=== PATIENT | female | born 1950 | race Caucasian/White ===

== ENCOUNTER 2017-09-26 05:33 | Inpatient (IN) | payer MEDICARE, OTHER ==
[2017-09-26] MEDS ORDERED: Nitroglycerin 0.4 MG TAB (25 Tab Bottle) ONE (05:53)
[2017-09-26 06:01] LABS: Hemoglobin 15.2 g/dL (12.0-16.0); Mean Corpuscular HGB CONC 31.7 g/dL (32.0-36.0); Mean Corpuscular Hemoglobin 30.9 pg (27.0-31.0); Mean Corpuscular Volume 97.6 fl (81.0-99.0); Mean Platelet Volume 5.8 fL (7.4-10.4); Platelet Count 253 thou/uL (130-400); RBC Distribution Width 11.8 % (11.5-14.5); Red Blood Cell (RBC) Count 4.93 mill/uL (4.20-5.40); White Blood Cell (WBC) Count 6.2 thou/uL (4.8-10.8)
[2017-09-26 06:04] LABS: INR-International Normal Ratio 0.9; PTT 26.3 SEC (22.9-36.1); Prothrombin Time 12.2 SEC (12.0-14.7)
[2017-09-26 06:10] LABS: Eosinophils 2 % (0-10); Lymphocytes 64 % (21-51); MDiff Complete? YES; Monocytes 9 % (0-10); Neutrophil 25 % (42-75)
[2017-09-26 06:14] LABS: ALT (SGPT) 27 U/L (8-55); AST (SGOT) 33 U/L (5-34); Albumin 4.3 g/dL (3.4-4.8); Alkaline Phosphatase 73 U/L (40-150); Anion Gap 17 mmol/L (10-20); BUN (Urea Nitrogen) 17 mg/dL (9.8-20.1); Bilirubin, Total 0.3 mg/dL (0.2-1.2); CK (CPK) 490 U/L (29-168); Calc. Creatinine Clearance 0 mL/min (70-130); Calcium 9.8 mg/dL (7.8-10.44); Carbon Dioxide 23 mmol/L (23-31); Chloride 99 mmol/L (98-107); Estimated GFR-MDRD 60; Globulin 3.6 g/dL (2.4-3.5); Glucose 147 mg/dL (80-115); Protein, Total 7.9 g/dL (6.0-8.3); Sodium 135 mmol/L (136-145)
[2017-09-26 06:16] LABS: CKMB 4.6 ng/mL (0-6.6)
[2017-09-26] MEDS ORDERED: Nitroglycerin 50 MG/250 ML BOT 250 ML ONE (06:17)
[2017-09-26 06:20] LABS: Troponin I 0.303 ng/mL (< 0.028)
[2017-09-26] MEDS ORDERED: Heparin 5,000 UNITS/ML VIAL ONE (06:37)
[2017-09-26] MEDS ORDERED: Heparin 10,000 UNITS/1 ML VIAL ONE (07:32)
[2017-09-26] MEDS ORDERED: Nitroglycerin 100MG/250ML BOT 250 ML ONE (07:33)
[2017-09-26] MEDS ORDERED: Atropine Sulfate 1 mg/10 ml Syringe ONE (08:11)
--- NOTE | 2017-09-26 09:13 | RAD ---
UPRIGHT PORTABLE CHEST ONE VIEW: HISTORY: A 67-year-old female with chest pain and diaphoresis. FINDINGS: Atherosclerosis of the aorta with ectasia. Heart size is normal. No confluent pneumonia, overt ciarra a, or pleural effusion. There is a soft tissue nodular density overlying the left costophrenic angle . The etiology of this is uncertain. Conceivably, it could represent a nipple shadow. Consider fol low-up PA and lateral chest for further assessment in this regard. IMPRESSION: 1. No active intrathoracic disease. 2. Atherosclerosis of the aorta with ectasia. 3. Soft tissue, 1.2 nodular density overlying the left costophrenic angle, which may well just repre sent a nipple shadow, but follow-up PA and lateral chest is suggested, to include nipple markers for further assessment. POS: [facility]
[2017-09-26] MEDS ORDERED: traMADol HCl 50 MG TAB PO PRN (10:55)
[2017-09-26] MEDS ORDERED: Acetaminophen/Codeine 30-300mg Tablet PO PRN (10:55)
[2017-09-26] MEDS ORDERED: Milk Of Magnesia 30 ML UDCUP PO PRN (10:55)
[2017-09-26] MEDS ORDERED: cloNIDine 0.1 MG TAB PO PRN (10:55)
[2017-09-26] MEDS ORDERED: Sodium Chloride 0.9% 1,000 ML IV SCH (11:00)
[2017-09-26] MEDS ORDERED: TICAGRELOR 90 MG TABLET PO SCH (11:00)
[2017-09-26 11:18] VITALS: BMI 19.5
[2017-09-26] MEDS ORDERED: Iopamidol 370 76% 50 ML VIAL FS ONE (11:30)
[2017-09-26] MEDS ORDERED: Iopamidol 370 76% 100 ML VIAL ONE (11:30)
[2017-09-26] MEDS ORDERED: TICAGRELOR 90 MG TABLET ONE (11:46)
[2017-09-26 12:10] LABS: Troponin I 35.171 ng/mL (< 0.028)
[2017-09-26] MEDS ORDERED: Fentanyl 100 MCG/2 ML VIAL ONE (12:37)
[2017-09-26] MEDS ORDERED: Carvedilol 3.125 MG TAB PO SCH ×2 (13:45→21:00)
[2017-09-26] MEDS ORDERED: Lisinopril 2.5 MG TAB PO SCH (13:45)
[2017-09-26] MEDS ORDERED: Fentanyl 100 MCG/2 ML VIAL SLOW IVP SCH (13:45)
--- NOTE | 2017-09-26 15:47 | HP ---
REASON FOR ADMISSION: Acute myocardial infarction. HISTORY OF PRESENT ILLNESS: Ms. Karena Penny is a 67-year-old woman. She said she was in her usua state of good health until last evening she started having discomfort in her chest and she thought it was indigestion. This morning, she woke up with severe arm pain bilaterally and also chest discom fort which worsened. She felt nauseated and diaphoretic. She went to the emergency room. Initial E KG was not conclusive for KS. There was no definite KS, but her repeat EKG showed severe ST elevatio n in lead II, III, AVF and V6 and severe ST depression in V2 and V3. The patient was transferred her e for emergency treatment. PAST MEDICAL HISTORY: 1. She has history of hypertension on no medicines. 2. She said she was recently diagnosed with high cholesterol, but the initial plan was to treat her with diet alone. 3. Osteoarthritis, medication once takes anti-inflammatory. 4. Takes blood pressure medicine, but she does not know which one. 5. No history of diabetes. 6. History of smoking, stopped 2 years ago. SOCIAL HISTORY: Stopped smoking 2 years ago, she has a very supportive who is at the bedside now. REVIEW OF SYSTEMS: Constitutional: No significant weight gain or loss. She is quite thin. Vision: No changes. Hearing: No changes. Pulmonary: No cough or wheezing. Gastrointestinal: No nausea, vomiting, diarrhea. Skin: No rashes. Neurologic: No unilateral weakness or numbness. Ps ychiatric: No unusual depression or anxiety. Hematologic: No unusual bruising. Genitourinary: No burning with urination. Musculoskeletal: She has aches and pains and nothing unusual in various dolly ints for which she takes anti-inflammatory. PHYSICAL EXAMINATION: GENERAL: Initially she is a critically ill appearing patient, now she is feeling much better. VITAL SIGNS: Initial blood pressure was 140 systolic. Pulse was in the 70 range. The patient was c old and pale. HEENT: Eyes: Sclerae nonicteric. Mouth mucous membranes moist. NECK: Supple, no lymphadenopathy. LUNGS: Currently clear anterolaterally. CARDIAC: Normal S1, normal S2. There is no murmur, rub or gallop. ABDOMEN: Soft, nontender. EXTREMITIES: No clubbing or cyanosis. There is no edema. SKIN: Skin was cool, but not cold. Her temperature by report was 93 degrees. She is on a warming blanket now. IMAGING: EKG showed severe ST elevations outlined above. Troponin level was relatively low at 0.3. PLAN: 1. The patient was given Heparin. 2. Aspirin. 3. She was taken directly to the cardiac catheterization lab. She was found to have approximately 7 0% calcified LAD lesion and 90% ostial diagonal lesion, 90%-95% obtuse marginal lesion with a small d istribution circumflex and a completely occluded right coronary, two stents were placed, 2.75 x 20 mm stent distal and then a 3.0 x 24 proximal slightly overlapping stents. Most of the vessels postdila maty with a 3-0 balloon over the last few millimeters. The patient is feeling better now. ASSESSMENT: 1. ST elevation infarction status post emergency percutaneous therapy. 2. Three-vessel disease. PLAN: 1. Aspirin. 2. Brilinta. 3. Statins. 4. MICHAELLE inhibitors and beta blockers, although ejection fraction is normal. 5. We will discuss the options with the patient, the option would be to proceed to bypass surgery at a later time versus stenting the obtuse marginal and treating medically, I think that was probably marguerite kohli to be the treatment we will pursue for now. We will be treating her medically at this time.
--- NOTE | 2017-09-26 17:04 | EKG ---
Test Reason : POST STENTS X2-RCA Blood Pressure : / mmHG Vent. Rate : 078 BPM Atrial Rate : 078 BPM P-R Int : 126 ms QRS Dur : 072 ms QT Int : 412 ms P-R-T Axes : 074 049 070 degrees QTc Int : 469 ms Normal sinus rhythm Nonspecific ST abnormality slight inferior st elevation of questionable significance No previous ECGs available Confirmed by DR. Laron MCELROY ([id number]) on 09/26/2017 5:04:46 PM Referred By: HONEY Confirmed By:DR. Laron MCELROY
[2017-09-26 18:27] LABS: Troponin I 51.751 ng/mL (< 0.028)
[2017-09-26] MEDS ORDERED: Lisinopril 5 MG TAB PO SCH (20:00)
[2017-09-26] MEDS ORDERED: diphenhydrAMINE 50 MG/ML VIAL IVP SCH (20:00)
[2017-09-26] MEDS ORDERED: Furosemide 20 MG/2 ML VIAL SLOW IVP SCH (20:15)
[2017-09-26] MEDS: Atorvastatin Calcium 40 MG TAB PO SCH (20:36)
[2017-09-26] MEDS: TICAGRELOR 90 MG TABLET PO SCH (20:37)
[2017-09-27 04:19] LABS: #Lymphocytes 1.6 thou/uL (1.20-3.40); #Monocytes 0.6 thou/uL (0.11-0.59); #Neutrophils 3.4 thou/uL (1.40-6.50); %Basophils 0.8 % (0.0-1.0); %Eosinophils 0.6 % (0.0-10.0); %Lymphocytes 28.1 % (21.0-51.0); %Monocytes 10.3 % (0.0-10.0); %Neutrophils 60.2 % (42.0-75.0); Hemoglobin 12.9 g/dL (12.0-16.0); Mean Corpuscular HGB CONC 33.8 g/dL (32.0-36.0); Mean Corpuscular Hemoglobin 33.7 pg (27.0-31.0); Mean Corpuscular Volume 99.8 fl (81.0-99.0); Mean Platelet Volume 6.7 fL (7.4-10.4); Platelet Count 200 thou/uL (130-400); RBC Distribution Width 12.2 % (11.5-14.5); Red Blood Cell (RBC) Count 3.82 mill/uL (4.20-5.40); White Blood Cell (WBC) Count 5.6 thou/uL (4.8-10.8)
[2017-09-27 04:32] LABS: ALT (SGPT) 32 U/L (8-55); AST (SGOT) 109 U/L (5-34); Albumin 3.4 g/dL (3.4-4.8); Alkaline Phosphatase 48 U/L (40-150); Anion Gap 16 mmol/L (10-20); BUN (Urea Nitrogen) 9 mg/dL (9.8-20.1); Bilirubin, Total 0.5 mg/dL (0.2-1.2); Calc. Creatinine Clearance 66 mL/min (70-130); Calcium 8.8 mg/dL (7.8-10.44); Carbon Dioxide 20 mmol/L (23-31); Chloride 101 mmol/L (98-107); Estimated GFR-MDRD 87; Globulin 2.9 g/dL (2.4-3.5); Glucose 95 mg/dL (80-115); Protein, Total 6.3 g/dL (6.0-8.3); Sodium 133 mmol/L (136-145)
[2017-09-27] MEDS ORDERED: Lisinopril 2.5 MG TAB PO SCH (09:00)
--- NOTE | 2017-09-27 09:01 | PRG ---
DATE OF SERVICE: 09/27/2017 SUBJECTIVE: Ms. Penny is doing well. She feels much better. She did receive some Lasix last nigh t, as she had some pulmonary vascular congestion, but she responded well to the Lasix. She is not khan ving chest pain now. She is not short of breath. PHYSICAL EXAMINATION: VITAL SIGNS: Her blood pressure 115/66 and pulse is 80. LUNGS: Clear. CARDIAC: Normal S1 and S2. ABDOMEN: Soft, nontender. EXTREMITIES: There is no edema. There is some ecchymosis around the catheterization site where she had severe amount of sneezing yesterday when the sheath was still in place, but otherwise she is doin g fine. LABORATORY DATA: The patient's troponin level peak was 51. ASSESSMENT: 1. Status post ST-elevation infarction, treated with percutaneous stent implantation. 2. History of smoking. She has stopped. 3. History of hypercholesterolemia. She is now on medicine. PLAN: 1. She is on lisinopril, increase dose to 5 mg a day. 2. Increase Coreg. 3. Continue statins. 4. Aspirin. 5. Brilinta. Further recommendations based on the clinical course, likely we will let her go home and they are to come back to do percutaneous intervention on the circumflex artery.
[2017-09-27] MEDS: TICAGRELOR 90 MG TABLET PO SCH ×2 (09:37→21:13)
[2017-09-27] MEDS: Lisinopril 5 MG TAB PO SCH (09:37)
[2017-09-27] MEDS: Loratadine 10 MG TAB PO SCH (09:37)
[2017-09-27] MEDS: Carvedilol 3.125 MG TAB PO SCH ×2 (09:38→21:12)
--- NOTE | 2017-09-27 11:56 | ULT ---
ULTRASOUND OF THE RIGHT GROIN (LEVY-SCALE, COLOR-FLOW, AND SPECTRAL DOPPLER): HISTORY: Hematoma/swelling in the right groin post cardiac catheterization. FINDINGS: There is good flow in the right common femoral artery and vein in the right groin. No pseudoaneurysm is seen. POS: [facility]
[2017-09-27] MEDS: Atorvastatin Calcium 40 MG TAB PO SCH (21:12)
[2017-09-28] MEDS ORDERED: Sodium Chloride 0.9% 10 ML ONE (07:32)
[2017-09-28] MEDS: Carvedilol 3.125 MG TAB PO SCH (08:09)
[2017-09-28] MEDS: TICAGRELOR 90 MG TABLET PO SCH (08:10)
[2017-09-28] MEDS: Lisinopril 5 MG TAB PO SCH (08:10)
[2017-09-28] MEDS: Loratadine 10 MG TAB PO SCH (08:10)
--- NOTE | 2017-09-28 14:35 | PDOC.CTH ---
<Martina Larose - Last Filed: 09/28/17 17:31> Cardiology Progress Note - Subjective The pt seen and examined. No overnight events. No cardiac complaints. Hematoma at Rt Fem is stable without any mass to palpate. - Objective Vital Signs Temp Pulse Pulse Pulse Resp BP BP 09/28/17 11:49 98.1 F 81 16 09/28/17 10:54 85 80 108/60 09/28/17 08:10 83 126/73 09/28/17 08:05 98.8 F 83 18 09/28/17 04:00 98.3 F 74 18 BP BP Pulse Ox Pulse Ox Pulse Ox 09/28/17 11:49 127/70 97 09/28/17 10:54 123/71 98 97 09/28/17 08:10 09/28/17 08:05 126/73 98 09/28/17 04:00 129/67 95 Weight 95 lb 12.8 oz 09/27/17 09/28/17 09/29/17 06:59 06:59 06:59 Intake Total 1668 2000 Output Total 2400 1650 Balance -732 350 - Physical Examination General/Neuro: alert & oriented x3 Neck: no JVD present Lungs: CTA Heart: RRR Abdomen: soft Extremities: other: (No edema) - Telemetry Telemetry Rhythm: SR 80s - Labs Result Diagrams: 09/27/17 03:37 09/27/17 03:37 Troponin/CKMB CK-MB (CK-2) 4.6 ng/mL (0-6.6) 09/26/17 05:50 Troponin I 51.751 ng/mL (< 0.028) H* 09/26/17 16:54 - Assessment/Plan 1. STEMI - Cardiac cath on 09/26/17 showed 3V CAD with s/p PCI x2 to RCA; stable with BBlocker, MICHAELLE, ASA, Statin, and Brilinta; possible another Cath for Lcx, which showed 95% stenosis 2. HTN - stable with current medication 3. Hyperlipidemia - on Statin 4. Ex smoker, quit 2 years ago MAR Reviewed * From Cardiac standpoint, the pt is stable to discharge to home. The pt must f /u with Dr Suggs's office within 2 wks. Review of Systems - Review of Systems Constitutional: reports: no symptoms reported EENTM: reports: no symptoms reported Respiratory: reports: no symptoms reported Cardiac (ROS): reports: no symptoms reported ABD/GI: reports: no symptoms reported : reports: no symptoms reported Musculoskeletal: reports: no symptoms reported Skin: reports: see HPI Neurological: reports: no symptoms reported <Deven Lindo - Last Filed: 09/28/17 19:44> Cardiology Progress Note - Objective Vital Signs Temp Pulse Pulse Pulse Resp BP BP 09/28/17 15:07 97.8 F 89 20 09/28/17 11:49 98.1 F 81 16 09/28/17 10:54 85 80 108/60 09/28/17 08:10 83 126/73 09/28/17 08:05 98.8 F 83 18 BP BP Pulse Ox Pulse Ox Pulse Ox 09/28/17 15:07 125/63 95 09/28/17 11:49 127/70 97 09/28/17 10:54 123/71 98 97 09/28/17 08:10 09/28/17 08:05 126/73 98 Weight 95 lb 12.8 oz 09/27/17 09/28/17 09/29/17 06:59 06:59 06:59 Intake Total 1668 2000 Output Total 2400 1650 Balance -732 350 - Labs Result Diagrams: 09/27/17 03:37 09/27/17 03:37 Troponin/CKMB CK-MB (CK-2) 4.6 ng/mL (0-6.6) 09/26/17 05:50 Troponin I 51.751 ng/mL (< 0.028) H* 09/26/17 16:54 - Assessment/Plan Pt. was seen and eval. by me. She has been ambulating without problems. I agree with the A/P by the INTERNSHIP COORDINATOR.The pt. wishes to go home today. She is stable and understands that she is to return to the hospital if she develops any symptoms.
[2017-09-28 15:44] VITALS: BP 125/63; TEMP 97.8
--- NOTE | 2017-09-29 05:34 | DIS ---
DATE OF ADMISSION: 09/26/2017 DATE OF DISCHARGE: 09/28/2017 DISCHARGE DISPOSITION: Home. PRIMARY DISCHARGE DIAGNOSES: ST elevation infarction with status post emergency percutaneous therapy and severe three-vessel coronary artery disease. SECONDARY DISCHARGE DIAGNOSES: Hypertension, hyperlipidemia, ex-smoker, which she quit 2 years ago. PRIMARY PROCEDURE: Cardiac catheterization on 09/26/2017 with status post PCI x2 to right coronary arteries. RADIOLOGICAL INVESTIGATION: Ultrasound of the right groin due to hematoma and swelling in the right groin for post cardiac catheterization: shows no evidence of a small aneurysm and with good flow in the right common femoral arteries. Chest x-ray showed no active intrathoracic disease with 1.2 nodular density over the left costophrenic angle. DISCHARGE MEDICATIONS: Aspirin 81 mg once a day, atorvastatin 40 mg once a day , carvedilol 6.25 mg twice a day, lisinopril 5 mg once a day, Brilinta 90 mg twice a day. CONTRAINDICATION ON THE MEDICATION: None. CODE STATUS: FULL CODE. DISCHARGE PLAN: The patient will follow up with Dr. Suggs within 1-2 weeks for possible another cardiac catheterization to left circumflex artery which showed 95% stenosis. HOSPITAL COURSE: Ms. Penny is 67-year-old female who was in usual state of good health until 09/26/2017 when she started having discomfort in her chest, which radiated to the bilateral upper extremities. She also felt nauseated, diaphoretic. She underwent emergency percutaneous therapy with 2 stents to right coronary arteries by Dr Suggs. Today before she was discharged, the patient walked to the floor without chest pain or discomfort in her chest, shortness of breath, dizziness or any other cardiac complaints. She has a large hematoma to the right groin due to severe cough while she was bedbound for post catheterization. The ultrasound of the right groin shows no aneurysm. The patient was instructed to follow up with Dr. Suggs's office within 1-2 weeks and notify any worsening of any cardiovascular related complaints. The patient was seen and examined at the bedside today. HARJIT
--- NOTE | 2017-09-30 07:37 | EKG ---
Test Reason : AM Blood Pressure : / mmHG Vent. Rate : 080 BPM Atrial Rate : 080 BPM P-R Int : 114 ms QRS Dur : 072 ms QT Int : 424 ms P-R-T Axes : 074 002 -12 degrees QTc Int : 489 ms Normal sinus rhythm Left atrial enlargement Abnormal ECG changed from prior day Confirmed by DR. Laron MCELROY ([id number]) on 09/30/2017 7:36:59 AM Referred By: HONEY Confirmed By:DR. Laron MCELROY
== END 2017-09-28 18:49 | disposition home or self-care (01) | DRG 247 ==
LOC: SCSER 05:33 → CCL 07:09 → CCU 07:28 → 2NO 09-27 21:48
PROVIDERS: ADMIT Internal Medicine Cardiovascular Disease; ATTEND Internal Medicine Cardiovascular Disease
PROC: 027035Z Dilation of Coronary Artery, One Artery with Two Drug-eluting Intraluminal Devices, Percutaneous Approach (ICD-10-PCS; principal; 2017-09-26)
PROC: 4A023N7 Measurement of Cardiac Sampling and Pressure, Left Heart, Percutaneous Approach (ICD-10-PCS; 2017-09-26)
PROC: B2111ZZ Fluoroscopy of Multiple Coronary Arteries using Low Osmolar Contrast (ICD-10-PCS; 2017-09-26)
PROC: B2151ZZ Fluoroscopy of Left Heart using Low Osmolar Contrast (ICD-10-PCS; 2017-09-26)
DX: I21.11 ST elevation (STEMI) myocardial infarction involving right coronary artery (principal); E78.00 Pure hypercholesterolemia, unspecified; I97.630 Postprocedural hematoma of a circulatory system organ or structure following a cardiac catheterization; R05 Cough; I25.10 Atherosclerotic heart disease of native coronary artery without angina pectoris; I10 Essential (primary) hypertension; Z87.891 Personal history of nicotine dependence; M19.90 Unspecified osteoarthritis, unspecified site
CPT/HCPCS: 36415; 71010; 76942; 80053; 82550; 82553; 84484; 85025; 85347; 85610; 85730; 92928; 93005; 93010; 93458; 93798; 93976; 96365; 96374; A4216; C1769; C1874; C1887; C9600; J0461; J1200; J1644; J1940; J3010

== ENCOUNTER 2017-10-29 14:58 | Outpatient (CLI) | payer MEDICARE ==
[2017-10-29 16:28] LABS: Hemoglobin 13.2 g/dL (12.0-16.0); Mean Corpuscular HGB CONC 33.5 g/dL (32.0-36.0); Mean Corpuscular Hemoglobin 33.5 pg (27.0-31.0); Mean Corpuscular Volume 99.8 fl (81.0-99.0); Mean Platelet Volume 6.7 fL (7.4-10.4); Platelet Count 305 thou/uL (130-400); RBC Distribution Width 11.8 % (11.5-14.5); Red Blood Cell (RBC) Count 3.94 mill/uL (4.20-5.40); White Blood Cell (WBC) Count 5.6 thou/uL (4.8-10.8)
[2017-10-29 16:36] LABS: PTT 27.5 SEC (22.9-36.1); Prothrombin Time 12.8 SEC (12.0-14.7)
[2017-10-29 16:46] LABS: Anion Gap 12 mmol/L (10-20); BUN (Urea Nitrogen) 23 mg/dL (9.8-20.1); Calc. Creatinine Clearance 0 mL/min (70-130); Calcium 10.1 mg/dL (7.8-10.44); Carbon Dioxide 26 mmol/L (23-31); Chloride 101 mmol/L (98-107); Estimated GFR-MDRD 66; Glucose 120 mg/dL (80-115); Potassium 4.4 mmol/L (3.5-5.1); Sodium 135 mmol/L (136-145)
== END 2017-10-29 14:59 | disposition home or self-care (01) ==
LOC: LABBT 14:58
PROVIDERS: ATTEND Internal Medicine Cardiovascular Disease
DX: Z01.818 Encounter for other preprocedural examination (principal); I25.10 Atherosclerotic heart disease of native coronary artery without angina pectoris
CPT/HCPCS: 80048; 85027; 85610; 85730

== ENCOUNTER 2017-11-05 05:56 | Inpatient (IN) | payer MEDICARE ==
[2017-11-05] MEDS ORDERED: Midazolam HCl 2 mg/2 ml Vial ONE (07:25)
[2017-11-05] MEDS ORDERED: Fentanyl 100 MCG/2 ML VIAL ONE (07:25)
[2017-11-05] MEDS ORDERED: Nitroglycerin 100MG/250ML BOT 250 ML ONE (07:36)
[2017-11-05] MEDS ORDERED: Heparin 10,000 UNITS/1 ML VIAL ONE (08:50)
[2017-11-05] MEDS ORDERED: Iopamidol 370 76% 50 ML VIAL FS ONE (13:16)
[2017-11-05] MEDS ORDERED: Iopamidol 370 76% 100 ML VIAL ONE (13:16)
[2017-11-05] MEDS ORDERED: Carvedilol 6.25 MG TAB PO SCH ×3 (17:00→19:30)
--- NOTE | 2017-11-05 17:19 | CCL ---
ADDENDUM: This is in addition to the note in the computerized cath report. The patient was brought to the cardiac catheterization lab. Access was obtained in the right groin a nd was found to have the followin. Left main calcified, but no stenosis. 2. LAD, 70%. 3. Diagonal 90%. 4. Circumflex 95% with some calcium 5. Right coronary stent widely patent with good flow. Ejection fraction of 60%. Prolonged efforts were made to try to balloon the circumflex which looked like the severe lesion, it took some difficulty to get the wire across the lesion and across the more tortuous segment ultimately that was done with an intermediate support wire to try to put a 2.0 nonc ompliant balloon across the area would not go. 2.0 compliant balloon would not go and finally even a 1.5 would not cross the lesion. Ultimately decided not to proceed further. The FL4 guide gave adequ ate backup. The wire was distal in the vessel. Ultimately decided that the best option would be elect geraldo bypass surgery. An angiogram was taken after the wire was removed and there is good flow that loo k identical to what we started with.
[2017-11-05] MEDS ORDERED: traMADol HCl 50 MG TAB PO PRN (17:24)
[2017-11-05] MEDS ORDERED: Acetaminophen/Codeine 30-300mg Tablet PO PRN ×2 (17:24)
[2017-11-05] MEDS ORDERED: Nitroglycerin 0.4 MG TAB (25 Tab Bottle) SL PRN (17:24)
[2017-11-05] MEDS ORDERED: Sodium Chloride 0.9% 1,000 ML IV SCH (17:24)
[2017-11-05] MEDS ORDERED: Cyclobenzaprine 10 MG TAB PO PRN (17:27)
[2017-11-05] MEDS ORDERED: Naproxen 500 MG TAB PO PRN (17:28)
[2017-11-05 17:58] VITALS: BMI 19.5
[2017-11-05] MEDS ORDERED: Carvedilol 3.125 MG TAB PO SCH (21:00)
[2017-11-05] MEDS ORDERED: Atorvastatin Calcium 40 MG TAB PO SCH ×2 (21:00)
--- NOTE | 2017-11-06 01:01 | CON ---
DATE OF CONSULTATION: 11/05/2017 HISTORY OF PRESENT ILLNESS: This is a pleasant 67-year-old lady who presented in August of this ar with an acute inferior CO. At that time, she underwent emergent placement of [address] Opal cornell. The patient had really no significant medical history except for some mild hypertension and dysl ipidemia that had actually only been diagnosed in August by Dr. Patel, her family doctor from [facility]. At the time of her right coronary stent, she was noted to have a high-grade OM lesion and about a 60% to 70% LAD, 70% to 80% diagonal lesion. She was brought back today to have stenting of h er circumflex system and was unable to have this accessed with a balloon. She is now referred for co ronary bypass grafting. PAST MEDICAL HISTORY: Dyslipidemia, hypertension, arthritis. PAST SURGICAL HISTORY: Eye lid surgery, tonsillectomy, and four natural childbirths. SOCIAL HISTORY: She smoked up until 2 years ago. She is , has 4 children. MEDICATIONS: Include Brilinta 90 mg b.i.d., lisinopril 5 q. day, Coreg 6.25 b.i.d., atorvastatin 40 a day, aspirin 81 a day. PHYSICAL EXAMINATION: GENERAL: Alert, cooperative lady small statured with a recorded height of 5 feet 3 inches and weight of 110 pounds. NECK: No carotid bruits, no JVD. LUNGS: Clear to auscultation. CARDIAC: Mild resting tachycardia. No murmurs. ABDOMEN: Soft, nontender. EXTREMITIES: Palpable dorsalis pedis pulses bilaterally with no peripheral edema. VITAL SIGNS: Blood pressure is 120/70 and heart rate is recorded as 89. Could have grafts to the LA D diagonal and OM. Because she has taken Brilinta this morning, she will probably have to wait about 5 days and this would put her into next week either Friday or Friday.
[2017-11-06] MEDS ORDERED: Carvedilol 6.25 MG TAB PO SCH ×4 (08:00→17:00)
[2017-11-06 08:25] VITALS: BP 131/74; TEMP 98.4
[2017-11-06] MEDS ORDERED: Aspirin 81 mg Enteric Coated Tablet PO SCH ×2 (09:00)
[2017-11-06] MEDS ORDERED: Lisinopril 5 MG TAB PO SCH (09:00)
[2017-11-06] MEDS ORDERED: Clopidogrel Bisulfate 300 MG TAB PO SCH ×2 (09:15→09:30)
[2017-11-07] MEDS ORDERED: Clopidogrel Bisulfate 75 MG TAB PO SCH (09:00)
--- NOTE | 2017-11-07 11:41 | DIS ---
DATE: 11/06/2017 FINAL DIAGNOSES: 1. Coronary artery disease. 2. Hypercholesterolemia. MEDICATIONS AT THE TIME OF DISCHARGE: 1. Aspirin 81 mg a day. 2. Atorvastatin 40 mg a day. 3. Carvedilol 6.25 mg twice a day. 4. Aspirin 81 mg a day. 5. Plavix 75 mg a day. Please see admission note for full details. HOSPITAL COURSE: Briefly, Ms. Penny is a pleasant patient, had a history of previous inferior myoc ardial infarction and treated with emergency stent implantation. She also had a critical stenosis in the circumflex and a borderline stenosis in the LAD. The plan was to bring her back for cardiac cat heterization and stent implantation in the obtuse marginal circumflex distribution. The patient was brought back. The circumflex was more tortuous than initially it appeared. With some effort a wire was able to be positioned, but a balloon could never could be positioned across the stenosis even to 1.5 mm balloon, noncompliant, would not cross the lesion. After multiple attempts elected to abandon that procedure and recommend the patient undergo surgery. The patient, however, was on Brilinta. Jerod parker elected today to stop Brilinta. She got loaded with Plavix. We would recommend bringing her back in about a week where the Brilinta will be completely gone and operate on aspirin and skipping Plavix just the day before and the day of the surgery. The patient will need bypass to the LAD, diagonal, and obtuse marginal system. The patient did well and was released home as outlined above.
== END 2017-11-06 11:29 | disposition home or self-care (01) | DRG 287 ==
LOC: CCL 05:56 → 2NO 14:33
PROVIDERS: ADMIT Internal Medicine Cardiovascular Disease; ATTEND Internal Medicine Cardiovascular Disease
PROC: 4A023N7 Measurement of Cardiac Sampling and Pressure, Left Heart, Percutaneous Approach (ICD-10-PCS; principal; 2017-11-05)
PROC: B2111ZZ Fluoroscopy of Multiple Coronary Arteries using Low Osmolar Contrast (ICD-10-PCS; 2017-11-05)
PROC: B2151ZZ Fluoroscopy of Left Heart using Low Osmolar Contrast (ICD-10-PCS; 2017-11-05)
PROC: B2181ZZ Fluoroscopy of Left Internal Mammary Bypass Graft using Low Osmolar Contrast (ICD-10-PCS; 2017-11-05)
DX: I25.10 Atherosclerotic heart disease of native coronary artery without angina pectoris (principal); E78.00 Pure hypercholesterolemia, unspecified; I25.2 Old myocardial infarction; I10 Essential (primary) hypertension; Z87.891 Personal history of nicotine dependence; Z95.5 Presence of coronary angioplasty implant and graft; E78.5 Hyperlipidemia, unspecified; M19.90 Unspecified osteoarthritis, unspecified site
CPT/HCPCS: 76942; 85347; 93458; 93798; 99152; 99153; A4216; C1725; C1769; C1887; J1644; J2250; J3010

== ENCOUNTER 2017-11-13 11:00 | Inpatient (IN) | payer MEDICARE, OTHER ==
[2017-11-13 12:13] LABS: Hemoglobin 12.1 g/dL (12.0-16.0); Mean Corpuscular HGB CONC 32.5 g/dL (32.0-36.0); Mean Corpuscular Hemoglobin 32.2 pg (27.0-31.0); Mean Corpuscular Volume 99.2 fl (81.0-99.0); Mean Platelet Volume 6.9 fL (7.4-10.4); Platelet Count 292 thou/uL (130-400); RBC Distribution Width 11.8 % (11.5-14.5); Red Blood Cell (RBC) Count 3.75 mill/uL (4.20-5.40)
[2017-11-13 12:35] LABS: Anion Gap 10 mmol/L (10-20); BUN (Urea Nitrogen) 21 mg/dL (9.8-20.1); Calc. Creatinine Clearance 0 mL/min (70-130); Calcium 9.6 mg/dL (7.8-10.44); Carbon Dioxide 31 mmol/L (23-31); Chloride 100 mmol/L (98-107); Estimated GFR-MDRD 68; Glucose 95 mg/dL (80-115); Potassium 4.8 mmol/L (3.5-5.1); Sodium 136 mmol/L (136-145)
[2017-11-14] MEDS ORDERED: Midazolam HCl 5 mg/5 ml Vial ONE (06:30)
[2017-11-14] MEDS ORDERED: Fentanyl 100 MCG/2 ML VIAL ONE (06:30)
[2017-11-14] MEDS ORDERED: Vecuronium 10 MG VIAL ONE ×2 (06:31→16:29)
[2017-11-14] MEDS ORDERED: Dexmedetomidine 200 MCG/2 ML VIAL ONE (06:31)
[2017-11-14] MEDS ORDERED: Heparin 10,000 UNITS/1 ML VIAL 30,000 UNITS in Sodium Chloride 0.9% 1,000 ML FS SCH (06:45)
[2017-11-14] MEDS ORDERED: CEFAZOLIN/Water 2 GM/20 ML SYRINGE ONE (07:08)
[2017-11-14] MEDS ORDERED: Nitroglycerin 50 MG/250 ML BOT 250 ML ONE (11:09)
[2017-11-14] MEDS ORDERED: Guaifenesin DM 100-10/5 ML UDCUP PO PRN (11:29)
[2017-11-14] MEDS ORDERED: Magnesium Sulfate 5 GM in Sodium Chloride 0.9% 1,000 ML IV SCH (11:29)
[2017-11-14] MEDS ORDERED: D5 1/2 NS w/20 mEq KCL 1,000 ML IV SCH ×2 (11:29→23:59)
[2017-11-14] MEDS ORDERED: niCARdipine HCl 25 MG in Sodium Chloride 0.9% 250 ML 240 ML IVPB PRN (11:29)
[2017-11-14] MEDS ORDERED: Mag-Al 1200 mg/1200 mg/30 ML UDCUP PO PRN (11:29)
[2017-11-14] MEDS ORDERED: Potassium Chloride 20 MEQ/100 ML PREMIX BAG IVPB PRN (11:29)
[2017-11-14] MEDS ORDERED: Acetaminophen 325 MG TAB PO PRN (11:29)
[2017-11-14] MEDS ORDERED: Ondansetron HCl/PF 4 MG/2 ML Vial IVP PRN (11:29)
[2017-11-14] MEDS ORDERED: Fentanyl 100 MCG/2 ML VIAL SLOW IVP PRN ×2 (11:29)
[2017-11-14] MEDS ORDERED: Promethazine HCl 25 MG/ML VIAL IM PRN (11:29)
[2017-11-14] MEDS ORDERED: Phenylephrine 10 MG/NS 250 ML 250 ML IVPB PRN (11:29)
[2017-11-14] MEDS ORDERED: Hetastarch 6% 500 ML 500 ML IVPB PRN (11:29)
[2017-11-14] MEDS ORDERED: HYDROcodone/Acetaminophen 5/325 mg Tablet PO PRN (11:29)
[2017-11-14] MEDS ORDERED: Post-Op Insulin Drip Protocol IVPB ONE (11:29)
[2017-11-14] MEDS ORDERED: DOPamine 400 MG/D5W 250 ML 250 ML IVPB PRN (11:29)
[2017-11-14] MEDS ORDERED: Bisacodyl 10 MG SUPP PR PRN (11:29)
[2017-11-14] MEDS ORDERED: hydrALAZINE 20 MG/ML VIAL SLOW IVP PRN (11:29)
[2017-11-14] MEDS ORDERED: Bisacodyl 5 MG TAB PO PRN (11:29)
--- NOTE | 2017-11-14 11:37 | OP ---
DATE OF PROCEDURE: 11/14/2017 PREOPERATIVE DIAGNOSIS: Coronary artery disease. PROCEDURE: Coronary bypass graft x3, left internal mammary artery to an LAD, saphenous vein grafts t o the second diagonal, obtuse marginal. SURGEON: Dr. Matty Adames COMPOUND MIXER: Dr. Guillaume PROCEDURE IN DETAIL: After adequate anesthesia had been obtained, the patient was prepped and draped . Dr. Guillaume did an open greater saphenous vein harvest on the left thigh while I performed a m edian sternotomy. After opening the sternum, the left internal mammary artery was harvested entering the left pleura. Lungs were hyperinflated. The patient was heparinized, the mammary divided distal ly and treated with papaverine. The mammary was small, but certainly adequate size for use. It was brought medial to the hyperinflated lung posterior to the thymus. Aorta and right atrium were cannul ated and cardiopulmonary bypass was instituted. Vessels were inspected for grafting following which the cross-clamp was applied. A liter of cardioplegic solution was given and the three distal anastom oses completed. Following this, a partial occluding clamp replaced the cross clamp and 2 proximal ve nous anastomoses performed on the aortic root marked with rings. The patient was then weaned from ca rdiopulmonary bypass, cannulas were removed, and protamine was given systemically. Aortic cannulatio n site was secured with a 4-0 Prolene suture. After ensuring good hemostasis, mediastinal and left p leural drains were placed and the sternum was reapproximated with #7 interrupted wire and vancomycin paste, platelet-enriched blood, and platelet-poor plasma were used on the closure layers. Subcutaneo us tissue and skin were closed and the patient is to be taken to the ICU in guarded condition.
[2017-11-14] MEDS ORDERED: Dextrose 50% Abboject 50 ML SYRINGE SLOW IVP PRN (11:43)
[2017-11-14] MEDS ORDERED: Dextrose 5% in Water 1,000 ML IV PRN (11:43)
[2017-11-14 11:45] LABS: #Eosinphils 0.1 thou/uL (0.0-0.7); #Lymphocytes 1.1 thou/uL (1.20-3.40); #Monocytes 0.2 thou/uL (0.11-0.59); #Neutrophils 3.9 thou/uL (1.40-6.50); %Basophils 0.7 % (0.0-1.0); %Lymphocytes 20.4 % (21.0-51.0); %Monocytes 3.4 % (0.0-10.0); %Neutrophils 74.5 % (42.0-75.0); Hemoglobin 10.5 g/dL (12.0-16.0); Mean Corpuscular HGB CONC 33.7 g/dL (32.0-36.0); Mean Corpuscular Hemoglobin 32.3 pg (27.0-31.0); Mean Corpuscular Volume 95.9 fl (81.0-99.0); Mean Platelet Volume 7.2 fL (7.4-10.4); Platelet Count 131 thou/uL (130-400); RBC Distribution Width 14.4 % (11.5-14.5); Red Blood Cell (RBC) Count 3.24 mill/uL (4.20-5.40); White Blood Cell (WBC) Count 5.3 thou/uL (4.8-10.8)
[2017-11-14 11:49] LABS: INR-International Normal Ratio 1.5; PTT 35.1 SEC (22.9-36.1)
[2017-11-14] MEDS: Insulin Regular 300 UNITS/3 ML VIAL SC PRN ×2 (11:49→15:54)
[2017-11-14 11:52] LABS: Actual Bicarbonate (HCO3a) 20.1 mEq/L (22-26); Base Excess (BEa) -3.8 mEq/L (0 (+/-) 2.5); CO2 Tension 32.5 mmHg (35.0-45.0); Hematocrit-ABG 32.5 % (36.0-47.0); Hemoglobin (Hb) 11.9 g/dL (12.0-16.0); O2 Tension (PaO2) 190.9 mmHg (80.0-100.0); pH, Arterial 7.41 (7.35-7.45)
[2017-11-14 11:53] LABS: ALV-art Gradient 124.975 (0-20); Calcium, Ionized 1.2 mmol/L (1.12-1.30); Puncture Site ALINE
[2017-11-14] MEDS: Ketorolac Tromethamine 30 MG/ML VIAL IVP SCH ×2 (12:08→18:13)
[2017-11-14 12:11] LABS: Anion Gap 13 mmol/L (10-20); BUN (Urea Nitrogen) 18 mg/dL (9.8-20.1); Calc. Creatinine Clearance 58 mL/min (70-130); Carbon Dioxide 19 mmol/L (23-31); Chloride 110 mmol/L (98-107); Estimated GFR-MDRD 85; Glucose 128 mg/dL (80-115); Potassium 4.5 mmol/L (3.5-5.1); Sodium 137 mmol/L (136-145)
[2017-11-14] MEDS: CEFAZOLIN/Water 2 GM/20 ML SYRINGE SLOW IVP SCH ×2 (13:35→21:34)
--- NOTE | 2017-11-14 14:03 | RAD ---
PORTABLE AP CHEST XRAY: DATE: 11/14/17. HISTORY: Post open heart surgery. COMPARISON: 09/26/17. FINDINGS: Endotracheal tube is noted in place with tip overlying the T4 vertebral body and above the level of t he shekhar. Mediastinal drains and left-sided thoracostomy tube are noted in place. A right subclavi an central venous catheter is noted in place with the tip overlying the expected location of the cav oatrial junction. Nasogastric tube is noted in place which courses into the left upper quadrant, but the tip is not imaged. The cardiac silhouette and pulmonary vasculature are within normal limits. There is atelectasis pres ent at the medial left lung base. Lungs are clear. There is a curvilinear density at the left lung apex which could represent a very tiny left apical pneumothorax. Right lung is clear. Vascular calc ifications are seen in the thoracic aorta. Degenerative changes are noted in the spine. IMPRESSION: 1. Postsurgical changes related to recent coronary artery bypass graft. Lines and tubes are in plac e as described above. 2. Question of a very tiny left apical pneumothorax, but there is a left-sided thoracostomy tube not ed in place. POS: [facility]
[2017-11-14 15:32] LABS: CO2 Tension 33.8 mmHg (35.0-45.0); pH, Arterial 7.38 (7.35-7.45)
[2017-11-14 15:33] LABS: Actual Bicarbonate (HCO3a) 19.4 mEq/L (22-26); Base Excess (BEa) -5.1 mEq/L (0 (+/-) 2.5); O2 Tension (PaO2) 191.7 mmHg (80.0-100.0)
[2017-11-14 15:36] LABS: Calcium, Ionized 1.2 mmol/L (1.12-1.30); Hematocrit-ABG 28.4 % (36.0-47.0); Hemoglobin (Hb) 9.7 g/dL (12.0-16.0); Puncture Site ALINE
[2017-11-14] MEDS ORDERED: MAGNESIUM SULFATE IV SCH (15:45)
[2017-11-14] MEDS ORDERED: D5 IV SCH (15:45)
[2017-11-14] MEDS ORDERED: KCL IV SCH (15:45)
[2017-11-14] MEDS ORDERED: 1/2 NS W IV SCH (15:45)
--- NOTE | 2017-11-14 15:51 | CON ---
DATE OF CONSULTATION: 11/14/2017 HISTORY OF PRESENT ILLNESS: Ms. Penny is a pleasant 67-year-old female. I was consulted because of her presence in the Critical Care Unit. She has undergone coronary artery bypass grafting. She had a 3-vessel bypass from WILSON to LAD and saphenous vein grafts to the second diagonal and the obtuse marginal. She is doing well postoperatively. She was awake when I evaluated her. She is being weaned per protocol, although she has had some fluctuation in her blood pressure. Last blood pressure was 88/59 recorded up to 90 with a little bit of dopamine. She has actually had a pressure of 150 earlier and then nitroglycerin was barely turned on, which led to her blood pressure drop into the 80s. PHYSICAL EXAMINATION: GENERAL: She is awake. HEENT: Her pupils are reactive. Face is symmetrical. She is orally intubated. NECK: Supple. No lymphadenopathy. Her chest is bandaged. LUNGS: Clear. HEART: Regular rhythm. ABDOMEN: Soft and nontender. EXTREMITIES: Warm. Left-sided chest tube is seen. IMPRESSION: Status post coronary artery bypass grafting, weaning per protocol, stable at this time. Critical care time 30 min. MTDD
[2017-11-14 16:06] LABS: Hemoglobin 9.3 g/dL (12.0-16.0)
--- NOTE | 2017-11-14 16:08 | PRG ---
DATE OF SERVICE: 11/14/2017 Ms. Penny is doing very well postoperatively. She had successful bypass surgery to LAD, internal mammary, vein graft to an obtuse marginal, vein gr aft to a diagonal. The patient is awake, alert, doing well. Blood pressure 110/50, pulse 79 and regular. ASSESSMENT: 1. Status post successful bypass surgery, doing well. 2. She will be back on Plavix starting tomorrow and low dose aspirin.
[2017-11-14] MEDS ORDERED: Thrombin 5000 UNITS/5 ML VIAL ONE (16:29)
[2017-11-14] MEDS ORDERED: Protamine Sulfate 250 MG/25 ML VIAL ONE (16:29)
[2017-11-14] MEDS ORDERED: Sodium Bicarb 50 MEQ/50 ML VIAL ONE (16:29)
[2017-11-14] MEDS ORDERED: Calcium Chloride 1 GM/10 ML Abboject SYRINGE ONE (16:29)
[2017-11-14] MEDS ORDERED: PHENYLEPHRINE-NS 100 MCG/ML 10 ML SYRINGE ONE (16:29)
[2017-11-14] MEDS ORDERED: Lidocaine 2% PF 100 mg/5 ml Syringe ONE (16:29)
[2017-11-14] MEDS ORDERED: Papaverine 60 MG/2 ML VIAL ONE (16:29)
[2017-11-14] MEDS ORDERED: Lidocaine 1% PF 5 ML VIAL ONE (16:29)
[2017-11-14] MEDS ORDERED: Aminocaproic Acid 5 GM/20 ML VIAL ONE (16:29)
[2017-11-14] MEDS ORDERED: Heparin 5,000 UNITS/ML VIAL ONE (16:29)
[2017-11-14] MEDS ORDERED: Heparin 30,000 units/30 ml VIAL ONE (16:29)
[2017-11-14] MEDS ORDERED: Albumin 25% 25 GM/100 ML BOT ONE (16:29)
[2017-11-14] MEDS ORDERED: Magnesium 5 GM/10 ML VIAL ONE (16:29)
[2017-11-14] MEDS ORDERED: ePHEDrine/0.9% NaCl/PF SYRINGE 50 mg/10 ml ONE (16:29)
[2017-11-14] MEDS ORDERED: Nitroglycerin 50 MG/250 ML BOT ONE (16:29)
[2017-11-14] MEDS ORDERED: Cardioplegic Soln 1,000 ML BAG ONE (16:29)
[2017-11-14] MEDS ORDERED: Potassium Chloride 60 MEQ/30 ML VIAL ONE (16:29)
[2017-11-14 16:36] LABS: Potassium 4.5 mmol/L (3.5-5.1)
[2017-11-14] MEDS ORDERED: Nitroglycerin 50 MG/250 ML BOT 250 ML IVPB PRN (19:12)
[2017-11-14] MEDS: Famotidine/PF 20 mg/2ml Vial SLOW IVP SCH (21:34)
[2017-11-14] MEDS: Atorvastatin Calcium 40 MG TAB PO SCH (21:34)
[2017-11-14] MEDS: HYDROcodone/Acetaminophen 5/325 mg Tablet PO PRN (21:51)
[2017-11-15 05:57] LABS: #Lymphocytes 0.9 thou/uL (1.20-3.40); #Monocytes 0.4 thou/uL (0.11-0.59); #Neutrophils 4.7 thou/uL (1.40-6.50); %Basophils 0.3 % (0.0-1.0); %Eosinophils 0.7 % (0.0-10.0); %Lymphocytes 14.9 % (21.0-51.0); %Monocytes 6.2 % (0.0-10.0); %Neutrophils 77.9 % (42.0-75.0); Hemoglobin 9.3 g/dL (12.0-16.0); Mean Corpuscular HGB CONC 33.3 g/dL (32.0-36.0); Mean Corpuscular Hemoglobin 32.1 pg (27.0-31.0); Mean Corpuscular Volume 96.4 fl (81.0-99.0); Mean Platelet Volume 7.1 fL (7.4-10.4); Platelet Count 143 thou/uL (130-400); RBC Distribution Width 14.5 % (11.5-14.5); Red Blood Cell (RBC) Count 2.91 mill/uL (4.20-5.40); White Blood Cell (WBC) Count 6.1 thou/uL (4.8-10.8)
[2017-11-15] MEDS: Ketorolac Tromethamine 30 MG/ML VIAL IVP SCH ×5 (06:00→23:33)
[2017-11-15] MEDS: CEFAZOLIN/Water 2 GM/20 ML SYRINGE SLOW IVP SCH (06:00)
[2017-11-15 06:18] LABS: Anion Gap 6 mmol/L (10-20); BUN (Urea Nitrogen) 9 mg/dL (9.8-20.1); Calc. Creatinine Clearance 62 mL/min (70-130); Calcium 7.9 mg/dL (7.8-10.44); Carbon Dioxide 25 mmol/L (23-31); Chloride 105 mmol/L (98-107); Estimated GFR-MDRD Greater than 90; Glucose 129 mg/dL (80-115); Potassium 4.4 mmol/L (3.5-5.1); Sodium 132 mmol/L (136-145)
[2017-11-15] MEDS: Insulin Regular 300 UNITS/3 ML VIAL SC PRN ×2 (08:21→17:06)
[2017-11-15] MEDS ORDERED: Aspirin 325 MG TAB PO SCH (09:00)
--- NOTE | 2017-11-15 09:09 | RAD ---
CHEST 1 VIEW: HISTORY: Surgery. Followup. COMPARISON: 11/14/17. FINDINGS: Cardiac silhouette is magnified and now partially obscured by increasing patchy bibasilar opacities a nd left pleural fluid. Mediastinum is midline with postoperative changes and aortic calcification. Endotracheal catheter and nasogastric tube are no longer visible. Other lines and tubes are unchange d in position. Left apical pneumothorax is no longer apparent. school lunch monitor leads overlie the ch est. IMPRESSION: 1. Interval resolution of left apical pneumothorax. Removal of the endotracheal catheter and nasoga stric tube. 2. Increasing left basilar atelectasis and left pleural fluid. POS: [facility]
[2017-11-15] MEDS: Clopidogrel Bisulfate 75 MG TAB PO SCH (09:23)
[2017-11-15] MEDS: Famotidine/PF 20 mg/2ml Vial SLOW IVP SCH ×2 (09:24→22:26)
[2017-11-15] MEDS: HYDROcodone/Acetaminophen 5/325 mg Tablet PO PRN ×4 (09:29→23:34)
[2017-11-15] MEDS ORDERED: Bisacodyl 10 MG SUPP PR PRN (09:51)
[2017-11-15] MEDS ORDERED: Mineral Oil ENEMA PR PRN (09:51)
[2017-11-15] MEDS ORDERED: Guaifenesin DM 100-10/5 ML UDCUP PO PRN (09:51)
[2017-11-15] MEDS ORDERED: Bisacodyl 5 MG TAB PO PRN (09:51)
[2017-11-15] MEDS ORDERED: Zolpidem Tartrate 5 MG TAB PO PRN (09:51)
[2017-11-15] MEDS ORDERED: Nitroglycerin 0.4 MG TAB 1 EACH SL PRN (09:51)
[2017-11-15] MEDS ORDERED: diphenhydrAMINE 25 MG CAP PO PRN (09:51)
[2017-11-15] MEDS ORDERED: Mag-Al 1200 mg/1200 mg/30 ML UDCUP PO PRN (09:51)
[2017-11-15] MEDS ORDERED: Artificial Tears 18 DROP/0.9 ML EA EYE PRN (09:51)
[2017-11-15] MEDS ORDERED: Insulin Regular 300 UNITS/3 ML VIAL SC PRN (10:30)
[2017-11-15 11:34] VITALS: BMI 17.5
--- NOTE | 2017-11-15 21:31 | PRG ---
DATE OF SERVICE: 11/15/2017 Ms. Penny has no complaints, says she is feeling well. She says she has minimal chest discomfort. PHYSICAL EXAMINATION: VITAL SIGNS: Blood pressure 101/58, heart rate is 80, respiratory rate is 15. She is on room air in no distress. LUNGS: Clear. HEART: Regular rhythm. ABDOMEN: Soft. EXTREMITIES: Without asymmetry. Chest radiograph shows small apical pneumothorax, it is no longer visible. She does have a small effusion, atelectasis on the left. White count 6.1, hemoglobin 9.3, platelets 143. Hemoglobin yesterday was 9.3. Sodium 132, potassium 4.4, chloride 105, bicarbonate 25, BUN 9, creatinine 0.65. IMPRESSION: Status post coronary artery bypass grafting, clinically stable. PLAN: Continue supportive care. Cardiac rehabilitation.
[2017-11-15] MEDS: Atorvastatin Calcium 40 MG TAB PO SCH (22:26)
[2017-11-15] MEDS: Carvedilol 3.125 MG TAB PO SCH (22:26)
[2017-11-16 05:25] LABS: #Eosinphils 0.1 thou/uL (0.0-0.7); #Lymphocytes 1.3 thou/uL (1.20-3.40); #Monocytes 0.5 thou/uL (0.11-0.59); #Neutrophils 4.2 thou/uL (1.40-6.50); %Basophils 0.5 % (0.0-1.0); %Eosinophils 1.4 % (0.0-10.0); %Lymphocytes 20.8 % (21.0-51.0); %Monocytes 7.7 % (0.0-10.0); %Neutrophils 69.6 % (42.0-75.0); Hemoglobin 8.7 g/dL (12.0-16.0); Mean Corpuscular HGB CONC 32.4 g/dL (32.0-36.0); Mean Corpuscular Hemoglobin 31.7 pg (27.0-31.0); Mean Corpuscular Volume 97.9 fl (81.0-99.0); Mean Platelet Volume 7.5 fL (7.4-10.4); Platelet Count 136 thou/uL (130-400); RBC Distribution Width 14.2 % (11.5-14.5); Red Blood Cell (RBC) Count 2.73 mill/uL (4.20-5.40)
[2017-11-16] MEDS: Ketorolac Tromethamine 30 MG/ML VIAL IVP SCH ×4 (05:48→23:38)
[2017-11-16 05:54] LABS: Anion Gap 8 mmol/L (10-20); BUN (Urea Nitrogen) 9 mg/dL (9.8-20.1); Calc. Creatinine Clearance 61 mL/min (70-130); Calcium 8.2 mg/dL (7.8-10.44); Carbon Dioxide 26 mmol/L (23-31); Chloride 106 mmol/L (98-107); Estimated GFR-MDRD Greater than 90; Glucose 105 mg/dL (80-115); Potassium 4.4 mmol/L (3.5-5.1); Sodium 136 mmol/L (136-145)
[2017-11-16] MEDS: HYDROcodone/Acetaminophen 5/325 mg Tablet PO PRN ×2 (08:03→16:21)
[2017-11-16] MEDS: Carvedilol 3.125 MG TAB PO SCH ×2 (09:23→20:51)
[2017-11-16] MEDS: Aspirin 81 mg Enteric Coated Tablet PO SCH (09:23)
[2017-11-16] MEDS: Clopidogrel Bisulfate 75 MG TAB PO SCH (09:23)
[2017-11-16] MEDS: Famotidine/PF 20 mg/2ml Vial SLOW IVP SCH ×2 (09:24→20:52)
--- NOTE | 2017-11-16 10:09 | RAD ---
CHEST 1 VIEW: HISTORY: Chest pain. COMPARISON: 11/15/17. FINDINGS: Cardiac silhouette is magnified and partially obscured by left pleural fluid that is similar in appea carine to the previous exam. The lungs are hyperinflated. Mediastinum is midline with postoperative changes. Opaque drain overlying the left upper chest remains in place. No significant residual pneu mothorax. quality assurance monitor chassis leads overlie the chest. IMPRESSION: Left pleural fluid and other findings are stable. POS: [facility]
[2017-11-16] MEDS: Atorvastatin Calcium 40 MG TAB PO SCH (20:52)
[2017-11-17] MEDS: HYDROcodone/Acetaminophen 5/325 mg Tablet PO PRN ×2 (03:52→14:05)
[2017-11-17] MEDS: Ketorolac Tromethamine 30 MG/ML VIAL IVP SCH (05:21)
[2017-11-17 05:45] LABS: #Eosinphils 0.1 thou/uL (0.0-0.7); #Lymphocytes 1.3 thou/uL (1.20-3.40); #Monocytes 0.6 thou/uL (0.11-0.59); #Neutrophils 4.7 thou/uL (1.40-6.50); %Basophils 0.2 % (0.0-1.0); %Eosinophils 1.7 % (0.0-10.0); %Lymphocytes 18.8 % (21.0-51.0); %Monocytes 9.3 % (0.0-10.0); Hemoglobin 8.9 g/dL (12.0-16.0); Mean Corpuscular HGB CONC 33.7 g/dL (32.0-36.0); Mean Corpuscular Hemoglobin 32.8 pg (27.0-31.0); Mean Corpuscular Volume 97.2 fl (81.0-99.0); Mean Platelet Volume 7.6 fL (7.4-10.4); Platelet Count 155 thou/uL (130-400); Red Blood Cell (RBC) Count 2.73 mill/uL (4.20-5.40); White Blood Cell (WBC) Count 6.7 thou/uL (4.8-10.8)
[2017-11-17 06:33] LABS: Anion Gap 10 mmol/L (10-20); BUN (Urea Nitrogen) 10 mg/dL (9.8-20.1); Calc. Creatinine Clearance 56 mL/min (70-130); Calcium 8.8 mg/dL (7.8-10.44); Carbon Dioxide 25 mmol/L (23-31); Chloride 105 mmol/L (98-107); Estimated GFR-MDRD 81; Glucose 104 mg/dL (80-115); Potassium 4.6 mmol/L (3.5-5.1); Sodium 135 mmol/L (136-145)
--- NOTE | 2017-11-17 07:03 | DIS ---
HOSPITAL COURSE: The patient was admitted and underwent coronary bypass grafting on 11/14/2017 to th e LAD, obtuse marginal, and second diagonal. She received 2 units of packed red cells intraoperative ly. Postoperatively, she did well with her hemoglobin in the 9 range. She was ambulating in the [facility] without difficulty. Her chest tubes were removed. She had no arrhythmias and will be discharged home on her admitting medicines except for lisinopril, which will be held for the time being. Discha rge and followup instructions were given and a prescription for [place] has been given.
[2017-11-17] MEDS ORDERED: Clopidogrel Bisulfate 75 MG TAB PO SCH (09:15)
[2017-11-17] MEDS ORDERED: Clopidogrel Bisulfate 300 MG TAB PO SCH (09:15)
[2017-11-17] MEDS ORDERED: Carvedilol 6.25 MG TAB PO SCH ×2 (09:15→21:00)
[2017-11-17] MEDS: Aspirin 81 mg Enteric Coated Tablet PO SCH (09:42)
[2017-11-17] MEDS: Clopidogrel Bisulfate 75 MG TAB PO SCH (09:42)
[2017-11-17] MEDS: Carvedilol 3.125 MG TAB PO SCH (10:06)
[2017-11-17 19:49] VITALS: BP 146/68; TEMP 99.2
[2017-11-18] MEDS ORDERED: Lisinopril 2.5 MG TAB PO SCH (09:00)
--- NOTE | 2017-11-20 10:29 | PQF ---
PRASHANTH NGO JAMES M MD [id number] CLINICAL DOCUMENTATION CLARIFICATION FORM: POST DISCHARGE Addendum to original discharge summary date: ____ Late entry note date: __ DATE: 11/20/2017 ATTN: DR. CONNER Please exercise your independent, professional judgment in responding to the clarification form. Clinical indicators are provided on the bottom of this form for your review Please check appropriate box(s): BMI < 19 [ ] MALNUTRITION ( ) Severe Malnutrition ( ) Moderate Malnutrition ( ) Mild Malnutrition [ ] Other diagnosis [ ] Unable to determine In addition, please specify: Present on Admission (POA): [ ] Yes [ ] No [ ] Unable to Determine For continuity of documentation, please document condition throughout progress notes and discharge summary. Thank You. BMI < 19 Under weight 19 - 24.9 Healthy 25.0 - 29.9Slightly Overweight 30.0 - 34.9Obese 35.0 - 39.9Severely Obese 40.0 and OverMorbidly Obese CLINICAL INDICATORS - SIGNS / SYMPTOMS / LABS: BMI of: 17.7 Kg/m2 WEIGHT 100 LBS RISK FACTORS: CAD CABG HTN TREATMENTS: (This form is maintained as a part of the permanent medical record) 2014 [employer]. All Rights Reserved Alejandrina Greenfield, CCS, SALES [employer]IVER-[employer] [email or web address] [phone] [email or web address]
== END 2017-11-17 15:45 | disposition home or self-care (01) | DRG 235 ==
LOC: SURG A 11-14 05:36 → CCU 11-14 09:45 → EDSTATUS 11-14 11:00 → 2NO 11-15 20:07
PROVIDERS: ADMIT Thoracic Surgery (Cardiothoracic Vascular Surgery); ATTEND Thoracic Surgery (Cardiothoracic Vascular Surgery)
PROC: 02100Z9 Bypass Coronary Artery, One Artery from Left Internal Mammary, Open Approach (ICD-10-PCS; principal; 2017-11-14)
PROC: 021109W Bypass Coronary Artery, Two Arteries from Aorta with Autologous Venous Tissue, Open Approach (ICD-10-PCS; 2017-11-14)
PROC: 06BQ0ZZ Excision of Left Saphenous Vein, Open Approach (ICD-10-PCS; 2017-11-14)
PROC: 5A1221Z Performance of Cardiac Output, Continuous (ICD-10-PCS; 2017-11-14)
PROC: B24BZZ4 Ultrasonography of Heart with Aorta, Transesophageal (ICD-10-PCS; 2017-11-14)
DX: I25.10 Atherosclerotic heart disease of native coronary artery without angina pectoris (principal); I21.3 ST elevation (STEMI) myocardial infarction of unspecified site; I42.9 Cardiomyopathy, unspecified; E78.5 Hyperlipidemia, unspecified; I10 Essential (primary) hypertension; M19.90 Unspecified osteoarthritis, unspecified site; Z87.891 Personal history of nicotine dependence; I25.2 Old myocardial infarction; Z95.5 Presence of coronary angioplasty implant and graft
CPT/HCPCS: 36415; 36416; 36430; 71045; 80048; 82805; 85025; 85027; 85610; 85730; 86850; 86900; 86901; 93005; 93010; 93798; 94002; 94150; A4216; J1265; J1642; J1644; J1815; J1885; J2001; J2250; J2270; J2440; J2720; J3010; J3370; J3475; J3480; J7050; P9016; P9045; P9047; S0017; S0028